=== PATIENT | female | born 1995 | race Asian ===

== ENCOUNTER 2016-07-09 12:25 | Emergency (ER) | payer OTHER ==
--- NOTE | 2016-07-11 10:12 | ED Physician Chart ---
Chief Complaint/HPI - Patient Information Date Seen:: 08/06/16 Time Seen:: 12:30 Chief Complaint:: PAIN IN THE VULVAR AREA X 5 DAYS History of Present Illness:: This 21-year-old female presents with a five day history of increasing pain and swelling in the vulvar region. She denies any fever, chills or diaphoresis. She rates the pain as an 8/10 with exasperating factors of movement and walking. No relieving factors. No associated nausea, vomiting, vaginally discharge or vaginally bleeding. No prior histories of similar symptoms. Allergies:: Allergies Allergy/AdvReac Type Severity Reaction Status Date / Time No Known Allergies Allergy Verified 07/09/16 13:16 Review of Systems - Review of Systems General/Constitutional: No fever, No chills, No weakness, No diaphoresis, No loss of appetite Skin: No rash Head: No headache, No light-headedness Eyes: No loss of vision, No pain, No diplopia ENT: No earache, No sore throat Neck: No neck pain, No swelling, No stiffness, No mass noted Cardio Vascular: No chest pain, No orthopnea Pulmonary: No SOB, No cough, No sputum GI: No nausea, No vomiting, No diarrhea G/U: No dysuria, No frequency, No hematuria Post Doc Fellowship: No vaginal discharge, No abnormal vaginal bleed Musculoskeletal: No bone or joint pain, No muscle pain Endocrine: No polyuria, No polydipsia Psychiatric: No prior psych history, No depression, No anxiety Hematopoietic: No bruising, Lymphadenopathy ( Lymphadenopathy in the right inguinal region.) Neurological: No syncope, No focal symptoms, No dizziness Past Medical History - Past Medical History Past Medical History: No significant medical hx Social History: Non Smoker, No Drug Use, 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.) Family Medical History - Family Member Mother Ethnicity: Hx Family Cancer: No Hx Family Coronary Artery Disease: No Hx Family Congestive Heart Failure: No Hx Family Hypertension: No Hx Family Stroke: No Hx Family Diabetes: No Hx Family Seizures: No Hx Family AIDS: No Hx Family HIV: No Hx Family COPD: No Other Medical History: patient denies family medical history Physical Exam - Physical Examination General/Constitutional: Awake, Well-developed, well-nourished, Alert, Non-toxic appearing, Ambulatory Other Gen/Cons comments:: The patient is in mild to moderate distress from her complained of pain. Head: Atraumatic Eyes: Lids, conjuctiva normal, PERRL, EOMI Skin: Nl inspection, No ecchymosis, Well hydrated ENMT: External ears, nose nl, Lips, teeth, gums nl, Oropharynx nl, Tonsils nl Neck: Nontender, Full ROM w/o pain, No JVD, No mass Respiratory: Nl effort/Exclusion, Clear to Auscultation Cardio Vascular: RRR, No murmur, gallop, rubs, NL S1 S2 Other Cardio Vascular comments:: Good pulses in all four extremities. GI: No tenderness/rebounding/guarding, No organomegaly, No hernia, Nondistended ( Mild lymphadenopathy in the right inguinal region.) : No CVA tenderness, No discharge Other comments:: The patient has swelling, and tenderness of the right labia consistent with a bartholin's abscess. Extremities: No tenderness or effusion, Full ROM, normal strength in all extremities, No edema Neuro/Psych: Alert/oriented, Normal sensory exam, Normal motor strength, Judgement/insight normal, Mood normal, Normal gait, No focal deficits Misc: Normal back, No paraspinal tenderness Assessment - Assessment General Assessment: CASE SUMMARY: this 21-year-old female presents with a five day history of pain in the genital region. On physical examination the patient has Bartholin's abscess of 1 x 3 cm. Betadine prepring of the skin over the abscess. The region was anesthetized with 4 mL of 1% lidocaine with epinephrine. A small incision was made over the center of the abscess and approximately 3 to 4 CC of purulent fluid drained. The patient tolerated the procedure well and had significant decrease in pain. She was discharged with a prescription for doxycycline 100 mg b.i.d. for 10 days. She was advised to take sitz baths and to massage the abscess area so as to express any residual purulent material. Pt was advised to follow up with her primary care physician this coming week. She was further advised to return to the emergency department for any increase in symptoms. MDM for Vulvar Pain: NOT Kenton's gangrene based on patient's history and examination. NOT UTI based on patient's history and exam. NOT Lymphogranuloma venereum based on history and examination. ED Septic Shock - . Is Septic Shock (SBP<90, OR Lactate>4 mmol\L) present?: No Reassessment (Disposition) - Diagnosis Diagnosis:: BARTHOLIN'S ABSCESS - Aftercare/Follow up Instructions Aftercare/Follow-Up Instructions:: Refer to Discharge Instructions - Patient Disposition Discharge/Transfer:: Home (FOLLOW UP WITH YOUR PRIMARY CARE DOCTOR THIS COMING WEEK.. RETURN TO THE ED IF YOUR SYMPTOMS WROSEN) ED Discharge Plan - Patient Disposition Admit/Discharge/Transfer: PT DISCHARGED HOME Condition at Disposition: Improved Instructions: Abscess Forms: Work Release Form
== END 2016-07-09 14:21 | disposition home or self-care (01) ==
LOC: ER 12:25
DX: N75.1 Abscess of Bartholin's gland (principal)
CPT/HCPCS: A4217; J2001; Z7502; Z7610